=== PATIENT | male | born 1930 | race Caucasian/White ===

== ENCOUNTER 2017-04-08 07:13 | Emergency (ER) | payer BC, OTHER ==
[~2017-04-08] VITALS: Ht 170.2 cm; Wt 65.0 kg
[2017-04-08 07:19] VITALS: TEMP 36.9; Ht 170.2 cm; Wt 65.0 kg
[2017-04-08] MEDS ORDERED: SODIUM CHLORIDE 0.9% 1000ML 1,000 ML IV STA (07:34)
[2017-04-08 08:00] LABS: BASO % 0.2 %; BASO ABS # 0.02 K/uL (0-0.2); COMPLETE YES; EOS % 5.1 %; HEMATOCRIT 40.2 % (42-52); IG% 0.1 %; LYMPH % 14.3 %; LYMPH ABS # 1.19 K/uL (1.2-3.4); MEAN CELL VOLUME 88.7 fL (80-100); MEAN CORPUSCULAR HEMOGLOBIN 30.7 pg (25-34); MEAN CORPUSCULAR HGB CONC 34.6 g/dl (32-36); MEAN PLATELET VOLUME 11.4 fL (7.4-10.4); MONO % 7.8 %; NEUT % 72.5 %; PLATELET COUNT 167 K/uL (130-400); RED BLOOD COUNT 4.53 M/uL (4.7-6.1); WHITE BLOOD COUNT 8.35 K/uL (4.8-10.8)
--- NOTE | 2017-04-08 08:03 | DIAGNOSTIC IMAGING REPORT ---
CHEST ONE VIEW PORTABLE CLINICAL HISTORY: Altered mental status. Weakness. COMPARISON STUDY: No previous studies for comparison. FINDINGS: Lung volumes are normal. There is no consolidation to suggest pneumonia. Mild cardiomegaly is noted without evidence of pulmonary edema. No pneumothorax or pleural effusion is identified. IMPRESSION: 1. No acute cardiopulmonary findings. 2. Mild cardiomegaly. Electronically signed by: Eduardo Hernandez M.D. 04/08/2017 8:01 AM Dictated Date/Time: 04/08/2017 8:00 AM
[2017-04-08 08:14] LABS: INR 3.3 (0.9-1.1); PARTIAL THROMBOPLASTIN RATIO 1.5; PROTHROMBIN TIME (PATIENT) 37.4 SECONDS (9.0-12.0)
[2017-04-08 08:15] LABS: ALT/SGPT 19 U/L (12-78); BLOOD UREA NITROGEN 20 mg/dl (7-18); CALCIUM 8.6 mg/dl (8.5-10.1); CARBON DIOXIDE 27 mmol/L (21-32); CHLORIDE 107 mmol/L (98-107); GLUCOSE 94 mg/dl (70-99); MAGNESIUM 2.2 mg/dl (1.8-2.4); POTASSIUM 4.2 mmol/L (3.5-5.1); SODIUM 139 mmol/L (136-145)
[2017-04-08 08:24] LABS: ALKALINE PHOSPHATASE 84 U/L (45-117); AST/SGOT 19 U/L (15-37); CKMB/CK RATIO 1.6 (0-3.0)
[2017-04-08] MEDS ORDERED: ATOR-24 PO (08:53)
[2017-04-08] MEDS ORDERED: LISI10TA PO (08:53)
[2017-04-08] MEDS ORDERED: POTA20TA16 PO (08:53)
[2017-04-08] MEDS ORDERED: ASPCH81X PO (08:53)
[2017-04-08] MEDS ORDERED: WARF4TAB8 PO ×2 (08:53)
[2017-04-08] MEDS ORDERED: METO50TA16 PO (08:53)
[2017-04-08] MEDS ORDERED: MULT-190 PO (08:55)
[2017-04-08] MEDS ORDERED: CLR10 PO (08:55)
--- NOTE | 2017-04-08 09:41 | EMERGENCY ROOM VISIT NOTE ---
History Report prepared by Rigobertoibvivi: Princess Gong Under the Supervision of: Dr. Aramis Sheehan D.O. First contact with patient: 07:23 Chief Complaint: CARDIAC ASSESSMENT Stated Complaint: LETHARGIC Nursing Triage Summary: Pt felt "waves" from lower chest upward. [place] like his heart was beating fast. Was dizzy with episodes of SOB. Pt states he had these symptoms all night but once he got in the ambulance, they stopped. History of Present Illness The patient is a 86 year old male who presents to the Emergency Room with complaints of intermittent chest pain that started last night. He reports yesterday evening, he began experiencing "upward waves" of chest pain that worsened with exertion. He also experienced intermittent dizziness, shortness of breath and heart palpitations. He and his family called EMS this morning, and once the patient got in the ambulance, he reports his symptoms "went away". The patient is on Coumadin for a history of atrial fibrillation. He also has cardiac stents in place and follows with Dr. Resendiz in [place]. His daughter notes he recently changed blood pressure medications from Amlodipine to Lisinopril because he was experiencing swelling in his legs. He denies any history of PE or DVT. The patient states he last ate at dinner time last night, when he had pork and sauerkraut for dinner. His daughter reports his last ED visit was approximately 1 month ago at [facility] after the patient cut his tongue on a potato chip and the area would not stop bleeding. Source of History: patient Onset: last night Position: chest Quality: other ("upward waves") Timing: intermittent Associated Symptoms: + SOB Review of Systems See HPI for pertinent positives & negatives. A total of 10 systems reviewed and were otherwise negative. Past Medical & Surgical Medical Problems: (1) Atrial fibrillation (2) Hypertension Surgical Problems: (1) History of heart artery stent Social History Smoking Status: Former Smoker Alcohol Use: none Drug Use: none Marital Status: Housing Status: lives with family Occupation Status: retired Current/Historical Medications Scheduled Aspirin (Aspirin Chewable), 81 MG PO DAILY Atorvastatin (Lipitor), 40 MG PO DAILY Lisinopril (Prinivil), 10 MG PO DAILY Metoprolol Tartrate (Lopressor) (Lopressor), 25 MG PO BID Ocuvite Preservision (Ocuvite Preservision), 1 TAB PO DAILY Potassium Ext Rel (Klor-Con), 20 MEQ PO DAILY Warfarin Sod (Jantoven), 8 MG PO 2XWK Warfarin Sod (Jantoven), 6 MG PO 5XWK Scheduled PRN Loratadine (Claritin), 10 MG PO DAILY PRN for ALLERGIES Allergies Coded Allergies: No Known Allergies (Unverified , 04/08/17) Physical Exam Vital Signs Date Time Temp Pulse Resp B/P (MAP) Pulse Ox O2 Delivery O2 Flow Rate FiO2 04/08/17 08:05 77 15 118/61 95 Room Air 04/08/17 08:01 64 15 118/62 97 Room Air 68 126/63 71 118/61 04/08/17 07:46 67 04/08/17 07:19 97 Room Air 04/08/17 07:19 36.9 68 16 137/73 96 Room Air Physical Exam CONSTITUTIONAL/VITAL SIGNS: Reviewed / noted above. GENERAL: Non-toxic in appearance. INTEGUMENTARY: Warm, dry, and [place]. HEAD: Normocephalic. EYES: without scleral icterus or trauma. ENT/OROPHARYNX: clear and moist. LYMPHADENOPATHY/NECK: Is supple without lymphadenopathy or meningismus. RESPIRATORY: Lungs clear and equal. CARDIOVASCULAR: Regular rate and rhythm. GI/ABDOMEN: Soft and nontender. No organomegaly or pulsatile mass. No rebound or guarding. Normal bowel sounds. EXTREMITIES: Warm and well perfused. BACK: No CVA tenderness. NEUROLOGICAL: Intact without focal deficits. PSYCHIATRIC: normal affect. MUSCULOSKELETAL: Normally developed with good muscle tone. Medical Decision & Procedures ER Provider Diagnostic Interpretation: Radiology results as stated below per my review and radiologist interpretation: CHEST ONE VIEW PORTABLE CLINICAL HISTORY: Altered mental status. Weakness. COMPARISON STUDY: No previous studies for comparison. FINDINGS: Lung volumes are normal. There is no consolidation to suggest pneumonia. Mild cardiomegaly is noted without evidence of pulmonary edema. No pneumothorax or pleural effusion is identified. IMPRESSION: 1. No acute cardiopulmonary findings. 2. Mild cardiomegaly. Electronically signed by: Eduardo Hernandez M.D. 04/08/2017 8:01 AM Laboratory Results 04/08/17 07:45 Red Blood Count 4.53, Mean Corpuscular Volume 88.7, Mean Corpuscular Hemoglobin 30.7, Mean Corpuscular Hemoglobin Concent 34.6, Mean Platelet Volume 11.4, Neutrophils (%) (Auto) 72.5, Lymphocytes (%) (Auto) 14.3, Monocytes (%) (Auto) 7.8, Eosinophils (%) (Auto) 5.1, Basophils (%) (Auto) 0.2, Neutrophils # (Auto) 6.05, Lymphocytes # (Auto) 1.19, Monocytes # (Auto) 0.65, Eosinophils # (Auto) 0.43, Basophils # (Auto) 0.02 04/08/17 07:45 Test 04/08/17 07:45 White Blood Count 8.35 K/uL (4.8-10.8) Red Blood Count 4.53 M/uL (4.7-6.1) Hemoglobin 13.9 g/dL (14.0-18.0) Hematocrit 40.2 % (42-52) Mean Corpuscular Volume 88.7 fL (80-100) Mean Corpuscular Hemoglobin 30.7 pg (25-34) Mean Corpuscular Hemoglobin Concent 34.6 g/dl (32-36) Platelet Count 167 K/uL (130-400) Mean Platelet Volume 11.4 fL (7.4-10.4) Neutrophils (%) (Auto) 72.5 % Lymphocytes (%) (Auto) 14.3 % Monocytes (%) (Auto) 7.8 % Eosinophils (%) (Auto) 5.1 % Basophils (%) (Auto) 0.2 % Neutrophils # (Auto) 6.05 K/uL (1.4-6.5) Lymphocytes # (Auto) 1.19 K/uL (1.2-3.4) Monocytes # (Auto) 0.65 K/uL (0.11-0.59) Eosinophils # (Auto) 0.43 K/uL (0-0.5) Basophils # (Auto) 0.02 K/uL (0-0.2) RDW Standard Deviation 49.2 fL (36.4-46.3) RDW Coefficient of Variation 15.1 % (11.5-14.5) Immature Granulocyte % (Auto) 0.1 % Immature Granulocyte # (Auto) 0.01 K/uL (0.00-0.02) Prothrombin Time 37.4 SECONDS (9.0-12.0) Prothromb Time International Ratio 3.3 (0.9-1.1) Activated Partial Thromboplast Time 39.6 SECONDS (21.0-31.0) Partial Thromboplastin Ratio 1.5 Anion Gap 5.0 mmol/L (3-11) Est Creatinine Clear Calc Drug Dose 33.5 ml/min Estimated GFR () 51.6 Estimated GFR (Non- 44.5 BUN/Creatinine Ratio 14.0 (10-20) Calcium Level 8.6 mg/dl (8.5-10.1) Magnesium Level 2.2 mg/dl (1.8-2.4) Total Bilirubin 0.9 mg/dl (0.2-1) Direct Bilirubin 0.2 mg/dl (0-0.2) Aspartate Amino Transf (AST/SGOT) 19 U/L (15-37) Alanine Aminotransferase (ALT/SGPT) 19 U/L (12-78) Alkaline Phosphatase 84 U/L (45-117) Total Creatine Kinase 141 U/L (39-308) Creatine Kinase MB 2.3 ng/ml (0.5-3.6) Creatine Kinase MB Ratio 1.6 (0-3.0) Troponin I < 0.015 ng/ml (0-0.045) Total Protein 6.2 gm/dl (6.4-8.2) Albumin 3.2 gm/dl (3.4-5.0) Lipase 202 U/L (73-393) Thyroid Stimulating Hormone (TSH) 2.230 uIu/ml (0.300-4.500) Laboratory results as stated above per my review. Medications Administered Medications (Trade) Dose Ordered Sig/[facility] Route Start Time Stop Time Status Last Admin Dose Admin Sodium Chloride 1,000 ml @ 999 mls/hr Q1H1M STAT IV 04/08/17 07:34 04/08/17 08:34 DC 04/08/17 07:59 999 MLS/HR ECG Indication: chest pain Rate (beats per minute): 67 Rhythm: sinus rhythm Findings: PVC, T-wave inversion (Lateral) ED Course 0725: Previous medical records were reviewed. The patient was evaluated in room B11B. A complete history and physical examination was performed. 0734: NSS 1000 ml @ 999 mls/hr IV. 0920: I reevaluated the patient. He is resting comfortably and feeling much better. Medical Decision The differential was considered includes acute myocardial infarction, acute coronary syndrome, myocarditis, pericarditis, pericardial effusions /tamponade, esophageal perforation, thoracic aortic dissection, pulmonary embolism, pneumonia, pneumothorax, pancreatitis, shingles, acute cholecystitis, perforated abdominal viscus. This is an 86-year-old male who presents to the ED with a chief complaint of having a rushing sensation to his brain that, and go. He states that his heart felt like it was beating hard on occasion. He denies any other specific complaints and states that he has no complaints at this time. His symptoms occurred this morning. The patient's physical exam vital signs were normal. An EKG shows a sinus rhythm at a rate of 67 with occasional PVC. He has some T wave inversions laterally. No old EKG for comparison. CBC is unremarkable, INR is 3.3. He is on Coumadin. Chest x-ray was negative for acute disease. BUN is 20, complete metabolic panel was normal, troponin is negative and TSH was normal. The patient was told results of the test. He is currently asymptomatic and is felt to be stable for discharge. The sensation that he was feeling may been related to PVCs. There is no clinical findings to suggest acute coronary syndrome CVA or other emergent anomaly. Medication Reconcilliation Current Medication List: was personally reviewed by me Blood Pressure Screening Patient's blood pressure: Normal blood pressure Blood pressure disposition: Did not require urgent referral Impression Primary Impression: Palpitation Scribe Attestation The scribe's documentation has been prepared under my direction and personally reviewed by me in its entirety. I confirm that the note above accurately reflects all work, treatment, procedures, and medical decision making performed by me. Departure Information Dispostion Home / Self-Care Referrals Chivo Hastings M.D. (PCP) Patient Instructions My [facility] Additional Instructions Follow-up with your doctor for further care and evaluation in 1-2 days. Return to the emergency department for worsening or new symptoms or any concerns. You have been examined and treated today on an emergency basis only. This is not a substitute for, or an effort to provide, complete comprehensive medical care. It is impossible to recognize and treat all injuries or illnesses in a single emergency department visit. It is therefore important that you follow up closely with your doctor. Call as soon as possible for an appointment.
[2017-04-08 10:10] VITALS: BP 102/67; PULSE 68; O2SAT 93
== END 2017-04-08 10:11 | disposition home or self-care (01) ==
LOC: EDBD 07:13 → C.EDB 07:15
DX: R00.2 Palpitations (principal); I48.91 Unspecified atrial fibrillation; R42 Dizziness and giddiness; I10 Essential (primary) hypertension; Z79.01 Long term (current) use of anticoagulants; Z79.82 Long term (current) use of aspirin; Z95.5 Presence of coronary angioplasty implant and graft; Z87.891 Personal history of nicotine dependence